=== PATIENT | male | born 1975 | race Caucasian/White ===

== ENCOUNTER 2018-05-21 09:07 | Emergency (ER) | payer OTHER ==
[~2018-05-21] VITALS: Ht 175.3 cm; Wt 79.4 kg
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
[2018-05-21] MEDS ORDERED: Norco 5mg/325mg tab ONE (09:14)
[2018-05-21] MEDS ORDERED: Ketorolac 30mg Inj ONE (09:14)
[2018-05-21 09:15] VITALS: BP 148/101
[2018-05-21] MEDS ORDERED: Norco 5mg/325mg tab ORAL ONE (09:15)
[2018-05-21] MEDS: Ketorolac 60mg Inj IM ONE ×2 (09:19→09:20)
[2018-05-21] MEDS ORDERED: NORCO 5-325 TA1 EACH ORAL (09:52)
[2018-05-21] MEDS ORDERED: IBUPROFEN600 MG ORAL (09:52)
[2018-05-21] MEDS ORDERED: Tetanus/Diptheria/Pertussis Vaccine 0.5ml Syr IM ONE (10:00)
[2018-05-21 10:07] VITALS: BP 134/88
[2018-05-21 10:14] VITALS: BP 134/88
--- NOTE | 2018-05-21 11:37 | Diagnostic Imaging Report ---
EXAM: XR Right Shoulder Complete, 2 or More Views CLINICAL HISTORY: PAIN TECHNIQUE: Two or more views of the right shoulder. COMPARISON: No relevant prior studies available. FINDINGS: Bones/joints: Unremarkable. Normal alignment is seen at the acromioclavicular and glenohumeral joints. No visible displaced fracture or dislocation. No osseous erosions. Coracoclavicular and subacromial spaces appear within normal limits. The clavicle and scapula appear intact. Soft tissues: Unremarkable. IMPRESSION: Unremarkable right shoulder x-rays. EXAM: XR Right Tibia and Fibula, 2 Views CLINICAL HISTORY: PAIN TECHNIQUE: Frontal and lateral views of the right tibia and fibula. COMPARISON: No relevant prior studies available. FINDINGS: Bones/joints: Subtle linear lucency along the distal fibula/lateral malleolus. Otherwise no displaced fracture or dislocation. Soft tissues: No abnormal soft tissue swelling. No radiodense foreign bodies. No soft tissue gas lucencies.. IMPRESSION: Subtle linear lucency along the distal fibula/lateral malleolus is nonspecific and cannot exclude a nondisplaced fracture, however lack of adjacent soft tissue swelling makes acute fracture unlikely. If there is continued clinical concern, x-rays of the ankle may be performed. EXAM: XR Right Foot Complete, 3 or More Views CLINICAL HISTORY: PAIN TECHNIQUE: Frontal, lateral and oblique views of the right foot. COMPARISON: No relevant prior studies available. FINDINGS: Bones/joints: Mild hallux valgus with early bunion formation. No visible displaced fracture. No dislocation. No osseous erosions. Visualized joint spaces appear unremarkable. Soft tissues: Unremarkable. No radiopaque foreign body. IMPRESSION: 1. No evidence of acute fracture or dislocation. 2. Mild hallux valgus with early bunion formation.
--- NOTE | 2018-05-22 10:31 | Diagnostic Imaging Report ---
Indication: 20 PAIN Technique: 3 views right foot Comparison: none Findings: There is hallux valgus. No acute fractures. No dislocations. The joint spaces are preserved Impression: Negative
--- NOTE | 2018-05-22 10:31 | Diagnostic Imaging Report ---
Indication: PAIN Technique: 3 views of the left shoulder Comparison: none Findings: No acute fractures. No dislocations. Joint spaces are preserved. Impression: Negative
== END 2018-05-21 10:14 | disposition home or self-care (01) ==
LOC: EDBD 09:07 → EMR 09:42
DX: S43.101A Unspecified dislocation of right acromioclavicular joint, initial encounter (principal); S90.31XA Contusion of right foot, initial encounter; V18.0XXA Pedal cycle driver injured in noncollision transport accident in nontraffic accident, initial encounter; Y93.55 Activity, bike riding; Y92.9 Unspecified place or not applicable; Z23 Encounter for immunization
CPT/HCPCS: 73030; 73590; 73630; 90471; 90715; 96372; 99284; J1885